=== PATIENT | female | born 1995 | race Caucasian/White ===

== ENCOUNTER 2017-04-25 10:35 | Inpatient (IN) | payer MEDICAID ==
[2017-04-25] MEDS ORDERED: Nalbuphine 20 MG/1 ML Amp IVPUSH PRN (11:28)
[2017-04-25] MEDS ORDERED: Sodium Chloride 0.9% 10 ML Syringe FLUSH PRN (11:28)
[2017-04-25] MEDS: Lactated Ringers 1,000 ML IV SCH ×4 (11:30→14:52)
[2017-04-25] MEDS ORDERED: Oxytocin/Lactated Ringers 10 UNIT/1,000 ML BAG IV SCH (11:30)
[2017-04-25] MEDS ORDERED: ePHEDrine 50 MG/ML SDV IVPUSH PRN (12:26)
[2017-04-25] MEDS ORDERED: Ondansetron 4 MG/2 ML SDV IVPUSH PRN (12:26)
[2017-04-25] MEDS ORDERED: diphenhydrAMINE 50 MG/ML SDV IVPUSH PRN (12:26)
[2017-04-25] MEDS ORDERED: fentaNYL 100 MCG/2 ML SDV ONE (12:26)
[2017-04-25] MEDS ORDERED: fentaNYL 100 MCG/2 ML SDV EPIDUR PRN (12:26)
[2017-04-25] MEDS ORDERED: Bupivacaine/fentaNYL/NS 100 ML Bag EPIDUR SCH (12:30)
--- NOTE | 2017-04-25 12:30 | PCM.PREANE ---
Preanesthetic Assessment - Procedure Proposed Procedure: ANDREW - Anesthesia/Transfusion/Family Hx Anesthesia History: No Prior Anesthesia Type of Anesthesia Reaction: Unknown Family History of Anesthesia Reaction: No Transfusion History: No Prior Transfusion(s) Intubation History: Unknown - Review of Systems General: No Symptoms Pulmonary: No Symptoms Cardiovascular: No Symptoms Gastrointestinal: No symptoms Neurological: Seizure (H/O seizure disorder- last seizure about 1 year ago, daily medication) Other: Reports: None - Physical Assessment NPO Status Date: 04/25/17 NPO Status Time: 12:00 Pulse: 68 O2 Sat by Pulse Oximetry: 98 Respiratory Rate: 16 Blood Pressure: 131/88 Temperature: 37.0 C Height: 1.65 m Weight: 85.275 kg ASA Class: 2 Mental Status: Alert & Oriented x3 Airway Class: Mallampati = 1 Dentition: Reports: Normal Dentition Thyro-Mental Finger Breadths: 3 Mouth Opening Finger Breadths: 3 ROM/Head Extension: Full Lungs: Clear to auscultation, Normal respiratory effort Cardiovascular: Regular Rate, Regular Rhythm - Lab Values: Laboratory Last Values WBC 12.98 K/mm3 (3.98-10.04) H 04/25/17 11:45 RBC 4.52 M/mm3 (3.98-5.22) 04/25/17 11:45 Hgb 13.7 gm/L (11.2-15.7) 04/25/17 11:45 Hct 39.2 % (34.1-44.9) 04/25/17 11:45 MCV 86.7 fl (79.4-94.8) 04/25/17 11:45 MCH 30.3 pg (25.6-32.2) 04/25/17 11:45 MCHC 34.9 g/dl (32.2-35.5) 04/25/17 11:45 RDW Std Deviation 41.0 fL (36.4-46.3) 04/25/17 11:45 Plt Count 251 K/mm3 (182-369) 04/25/17 11:45 MPV 10.1 fl (9.4-12.3) 04/25/17 11:45 Neut % (Auto) 82.0 % (34.0-71.1) H 04/25/17 11:45 Lymph % (Auto) 12.2 % (19.3-51.7) L 04/25/17 11:45 [place] % (Auto) 5.2 % (4.7-12.5) 04/25/17 11:45 Eos % (Auto) 0.2 (0.7-5.8) L 04/25/17 11:45 Baso % (Auto) 0.2 % (0.1-1.2) 04/25/17 11:45 Neut # (Auto) 10.64 K/mm3 (1.56-6.13) H 04/25/17 11:45 Lymph # (Auto) 1.58 K/mm3 (1.18-3.74) 04/25/17 11:45 [place] # (Auto) 0.68 K/mm3 (0.24-0.36) H 04/25/17 11:45 Eos # (Auto) 0.02 K/mm3 (0.04-0.36) L 04/25/17 11:45 Baso # (Auto) 0.03 K/mm3 (0.01-0.08) 04/25/17 11:45 - Allergies Allergies/Adverse Reactions: Allergies Allergy/AdvReac Type Severity Reaction Status Date / Time No Known Allergies Allergy Verified 04/24/17 12:31 - Blood Blood Available: No Product(s) Available: None - Anesthesia Plan Pre-Op Medication Ordered: None - Acknowledgements Anesthesia Type Planned: Epidural Pt an Appropriate Candidate for the Planned Anesthesia: Yes Alternatives and Risks of Anesthesia Discussed w Pt/Guardian: Yes Pt/Guardian Understands and Agrees with Anesthesia Plan: Yes PreAnesthesia Questionnaire - Past Health History Medical/Surgical History: Denies 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: , 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 : 2 Para: 0 Neurological History: Reports: Seizure - SUBSTANCE USE Smoking Status *Q: Never Smoker Second Hand Smoke Exposure: No Days Per Week of Alcohol Use: 0 Number of Drinks Per Day: 0 Total Drinks Per Week: 0 Recreational Drug Use History: No - HOME MEDS Home Medications: Home Meds Divalproex Sodium [Depakote] 250 mg PO DAILY 11/21/16 [History] Folic Acid 1 mg PO DAILY 11/21/16 [History] - CURRENT (IN HOUSE) MEDS Current Meds: Current Medications Lactated Ringer's (Ringers, Lactated) 1,000 mls @ 100 mls/hr IV ASDIRECTED CHRISTY Oxytocin/Lactated Ringer's (Pitocin In Lr 10 Units/1,000 Ml) 10 unit in 1,000 mls @ 500 mls/hr IV TITRATE CHRISTY PRN Reason: Protocol Nalbuphine HCl (Nubain) 10 mg IVPUSH Q2H PRN PRN Reason: Pain (moderate 4-6) Sodium Chloride (Saline Flush) 10 ml FLUSH ASDIRECTED PRN PRN Reason: Keep Vein Open
[2017-04-25] MEDS ORDERED: Lidocaine 1% 50 ML MDV ONE (19:22)
--- NOTE | 2017-04-25 19:52 | PCM.LDHP ---
L&D History of Present Illness - General Date of Service: 04/25/17 Admit Problem/Dx: Patient Status Order with Admit Dx/Problem 04/25/17 11:28 Patient Status [ADT] Routine Admission Diagnosis/Problem Admission Diagnosis/Problem care Source of Information: Patient History Limitations: Reports: No Limitations - History of Present Illness Introduction:: 22 year old here in active labor. PNC with Dr. Rodríguez complicated only by seizure disorder. 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 Neurological History: Reports: Seizure Social & Family History - Family History Family Medical History: Noncontributory - Tobacco Use Smoking Status *Q: Never Smoker Second Hand Smoke Exposure: No - Caffeine Use Caffeine Use: Reports: Soda - Alcohol Use Days Per Week of Alcohol Use: 0 Number of Drinks Per Day: 0 Total Drinks Per Week: 0 - Recreational Drug Use Recreational Drug Use: No - Living Situation & Occupation Living situation: Reports: Single, with Family Occupation: Unemployed H&P Review of Systems - Review of Systems: Review Of Systems: See Below General: Reports: No Symptoms HEENT: Reports: No Symptoms Pulmonary: Reports: No Symptoms Cardiovascular: Reports: No Symptoms Gastrointestinal: Reports: No Symptoms Genitourinary: Reports: No Symptoms Musculoskeletal: Reports: No Symptoms Skin: Reports: No Symptoms Psychiatric: Reports: No Symptoms Neurological: Reports: No Symptoms Hematologic/Lymphatic: Reports: No Symptoms Immunologic: Reports: No Symptoms L&D Exam - Exam Exam: See Below - Vital Signs Vital Signs: Last Vital Signs Temp 37.0 C 04/25/17 12:31 Pulse 68 04/25/17 12:31 Resp 16 04/25/17 12:31 BP 131/88 04/25/17 12:31 Pulse Ox 98 04/25/17 12:31 Weight: 85.275 kg - OB Specific Contraction Intensity: Mild to Moderate Movement: Active Heart Tones: Present Heart Rate (FHR) Variability: Moderate (6-25 bmp) Presentation: Vertex - Turner Score Turner Score Cervix Position: Midposition Turner Score Consistency: Medium Turner Score Effacement: 51-70% Turner Score Dilation: 3-4 cm Turner Score Infant's Station: -2 Turner Score Total: 7 - Exam General: Alert, Oriented HEENT: Conjunctiva Clear Neck: Supple, Trachea Midline Lungs: Clear to Auscultation, Normal Respiratory Effort Cardiovascular: Regular Rate, Regular Rhythm Genitourinary: Normal external exam Back Exam: Normal Inspection Extremities: Normal Inspection Skin: Warm, Dry, Intact Neurological: Cranial Nerves Intact, Reflexes Equal Bilateral Psychiatric: Alert, Normal Affect, Normal Mood - Patient Data Lab Results last 24 hrs: Laboratory Results - last 24 hr 04/25/17 Range/Units 11:45 WBC 12.98 H (3.98-10.04) K/mm3 RBC 4.52 (3.98-5.22) M/mm3 Hgb 13.7 (11.2-15.7) gm/L Hct 39.2 (34.1-44.9) % MCV 86.7 (79.4-94.8) fl MCH 30.3 (25.6-32.2) pg MCHC 34.9 (32.2-35.5) g/dl RDW Std Deviation 41.0 (36.4-46.3) fL Plt Count 251 (182-369) K/mm3 MPV 10.1 (9.4-12.3) fl Neut % (Auto) 82.0 H (34.0-71.1) % Lymph % (Auto) 12.2 L (19.3-51.7) % [place] % (Auto) 5.2 (4.7-12.5) % Eos % (Auto) 0.2 L (0.7-5.8) Baso % (Auto) 0.2 (0.1-1.2) % Neut # (Auto) 10.64 H (1.56-6.13) K/mm3 Lymph # (Auto) 1.58 (1.18-3.74) K/mm3 [place] # (Auto) 0.68 H (0.24-0.36) K/mm3 Eos # (Auto) 0.02 L (0.04-0.36) K/mm3 Baso # (Auto) 0.03 (0.01-0.08) K/mm3 Result Diagrams: 04/25/17 11:45 Problem List Initiated/Reviewed/Updated: Yes Orders Last 24hrs: Active Orders 24 hr Category Date Time Status Patient Status Manage Transfer [TRANSFER] Routine ADT 04/25/17 19:45 Active Patient Status [ADT] Routine ADT 04/25/17 11:28 Active Activity as Tolerated [RC] PFP Care 04/25/17 11:28 Active Communication Order [RC] ASDIRECTED Care 04/25/17 11:28 Active Heart Tones [RC] ASDIRECTED Care 04/25/17 11:28 Active Notify Provider [RC] PFP Care 04/25/17 11:28 Active Notify Provider [RC] PRN Care 04/25/17 11:28 Active Peripheral IV Care [RC] . DIRECTED Care 04/25/17 11:28 Active Vital Signs [RC] PER UNIT ROUTINE Care 04/25/17 11:28 Active Clear Liquid Diet [DIET] Diet 04/25/17 Breakfast Active Bupivacaine/fentaNYL/NS [fentaNYL/Bupivacaine/NS 2 MCG- Med 04/25/17 12:30 Active 0.125% 100 ML] 100 ml EPIDUR ASDIRECTED Lactated Ringers [Ringers, Lactated] 1,000 ml Med 04/25/17 11:30 Active IV ASDIRECTED Nalbuphine [Nubain] Med 04/25/17 11:28 Active 10 mg IVPUSH Q2H PRN Ondansetron [Zofran] Med 04/25/17 12:26 Active 4 mg IVPUSH ONETIME PRN Oxytocin/Lactated Ringers [Pitocin in LR 10 Units/1,000 Med 04/25/17 11:30 Active ML] 10 unit in 1,000 ml IV TITRATE Sodium Chloride 0.9% [Saline Flush] Med 04/25/17 11:28 Active 10 ml FLUSH ASDIRECTED PRN diphenhydrAMINE [Benadryl] Med 04/25/17 12:26 Active 25 mg IVPUSH Q6H PRN ePHEDrine [ePHEDrine Sulfate] Med 04/25/17 12:26 Active 5 mg IVPUSH ASDIRECTED PRN fentaNYL [Sublimaze] Med 04/25/17 12:26 Active 100 mcg EPIDUR Q3H PRN Electronic Heart Tones Ext w TOCO [WOMSER] Oth 04/25/17 11:28 Ordered Routine Electronic Heart Tones Internal [WOMSER] Per Unit Oth 04/25/17 11:28 Ordered Routine Peripheral IV Insertion Adult [OM.PC] Routine Oth 04/25/17 11:28 Ordered Resuscitation Status Routine Resus Stat 04/25/17 11:28 Ordered Medication Orders Diphenhydramine HCl (Benadryl) 25 mg IVPUSH Q6H PRN PRN Reason: pruritis Ephedrine Sulfate (Ephedrine Sulfate) 5 mg IVPUSH ASDIRECTED PRN PRN Reason: Hypotension Fentanyl (Sublimaze) 100 mcg EPIDUR Q3H PRN PRN Reason: Pain Last Admin: 04/25/17 12:56 Dose: 100 mcg Fentanyl/Bupivacaine HCl (Fentanyl/Bupivacaine/Ns 2 Mcg-0.125% 100 Ml) 100 ml EPIDUR ASDIRECTED [facility] Last Admin: 04/25/17 12:58 Dose: 100 ml Lactated Ringer's (Ringers, Lactated) 1,000 mls @ 100 mls/hr IV ASDIRECTED [facility] Last Admin: 04/25/17 14:52 Dose: 100 mls/hr Infusion: 04/25/17 14:52 Dose: 100 mls/hr Admin: 04/25/17 13:15 Dose: 100 mls/hr Infusion: 04/25/17 13:15 Dose: 100 mls/hr Admin: 04/25/17 12:30 Dose: 100 mls/hr Infusion: 04/25/17 12:30 Dose: 100 mls/hr Admin: 04/25/17 11:30 Dose: 100 mls/hr Oxytocin/Lactated Ringer's (Pitocin In Lr 10 Units/1,000 Ml) 10 unit in 1,000 mls @ 500 mls/hr IV TITRATE [facility] PRN Reason: Protocol Nalbuphine HCl (Nubain) 10 mg IVPUSH Q2H PRN PRN Reason: Pain (moderate 4-6) Ondansetron HCl (Zofran) 4 mg IVPUSH ONETIME PRN PRN Reason: Nausea/Vomiting Sodium Chloride (Saline Flush) 10 ml FLUSH ASDIRECTED PRN PRN Reason: Keep Vein Open Assessment/Plan Comment:: 22 year old here in active labor.
[2017-04-25] MEDS ORDERED: Lanolin 100% Cream 7 GM Tube TOP PRN (20:06)
[2017-04-25] MEDS ORDERED: Ibuprofen 600 MG Tab PO PRN (20:06)
[2017-04-25] MEDS ORDERED: Docusate Sodium 100 MG Cap PO PRN (20:06)
[2017-04-25] MEDS ORDERED: Witch Hazel Medicated Pads 100/Jar TOP PRN (20:06)
[2017-04-25] MEDS ORDERED: Divalproex Sodium Delayed-Release 250 MG Tab.CR PO ONE (20:08)
[2017-04-25] MEDS ORDERED: Lidocaine 1% 50 ML MDV INJECT PRN (20:54)
[2017-04-25] MEDS ORDERED: Bupivacaine 0.25% 10 ML SDV ONE (22:22)
[2017-04-26] MEDS ORDERED: Divalproex Sodium Delayed-Release 250 MG Tab.CR PO ONE (00:30)
--- NOTE | 2017-04-26 05:55 | PCM.PNPP ---
- General Info Date of Service: 04/26/17 Functional Status: Reports: pain controlled - Review of Systems General: Reports: No Symptoms HEENT: Reports: no symptoms Pulmonary: Reports: no symptoms Cardiovascular: Reports: No Symptoms Gastrointestinal: Reports: No symptoms Genitourinary: Reports: no symptoms Musculoskeletal: Reports: no symptoms Skin: Reports: no symptoms Neurological: Reports: No Symptoms Psychiatric: Reports: no symptoms - Patient Data Vital Signs - most recent: Last Vital Signs Temp 36.2 C 04/26/17 04:31 Pulse 93 04/26/17 04:31 Resp 16 04/26/17 04:31 BP 113/70 04/26/17 04:31 Pulse Ox 97 04/26/17 04:31 Weight - most recent: 85.275 kg I&O - last 24 hours: Intake & Output 04/25/17 04/25/17 04/26/17 14:59 22:59 06:59 Intake Total 360 Balance 360 Lab Results - last 24 hrs: Laboratory Results - last 24 hr 04/25/17 04/26/17 Range/Units 11:45 03:29 WBC 12.98 H 20.71 H (3.98-10.04) K/mm3 RBC 4.52 3.65 L (3.98-5.22) M/mm3 Hgb 13.7 11.2 (11.2-15.7) gm/L Hct 39.2 32.0 L (34.1-44.9) % MCV 86.7 87.7 (79.4-94.8) fl MCH 30.3 30.7 (25.6-32.2) pg MCHC 34.9 35.0 (32.2-35.5) g/dl RDW Std Deviation 41.0 40.8 (36.4-46.3) fL Plt Count 251 229 (182-369) K/mm3 MPV 10.1 9.9 (9.4-12.3) fl Neut % (Auto) 82.0 H (34.0-71.1) % Lymph % (Auto) 12.2 L (19.3-51.7) % [place] % (Auto) 5.2 (4.7-12.5) % Eos % (Auto) 0.2 L (0.7-5.8) Baso % (Auto) 0.2 (0.1-1.2) % Neut # (Auto) 10.64 H (1.56-6.13) K/mm3 Lymph # (Auto) 1.58 (1.18-3.74) K/mm3 [place] # (Auto) 0.68 H (0.24-0.36) K/mm3 Eos # (Auto) 0.02 L (0.04-0.36) K/mm3 Baso # (Auto) 0.03 (0.01-0.08) K/mm3 Med Orders - Current: Current Medications Docusate Sodium (Colace) 100 mg PO BID PRN PRN Reason: Constipation Emollient Ointment (Lansinoh Hpa) 0 gm TOP ASDIRECTED PRN PRN Reason: Sore Nipples Ibuprofen (Motrin) 600 mg PO Q6H PRN PRN Reason: Mild pain or fever Last Admin: 04/25/17 21:16 Dose: 600 mg Lidocaine HCl (Xylocaine 1%) 50 ml INJECT ONETIME PRN PRN Reason: perineal pain Last Admin: 04/25/17 19:30 Dose: 50 ml Witch Amanda (Tucks) 1 pad TOP ASDIRECTED PRN PRN Reason: Hemorrhoid pain Discontinued Medications Diphenhydramine HCl (Benadryl) 25 mg IVPUSH Q6H PRN PRN Reason: pruritis Divalproex Sodium (Divalproex Sodium) 250 mg PO ONETIME ONE Stop: 04/26/17 00:31 Last Admin: 04/26/17 00:22 Dose: 250 mg Ephedrine Sulfate (Ephedrine Sulfate) 5 mg IVPUSH ASDIRECTED PRN PRN Reason: Hypotension Fentanyl (Sublimaze) 100 mcg EPIDUR Q3H PRN PRN Reason: Pain Last Admin: 04/25/17 12:56 Dose: 100 mcg Fentanyl (Sublimaze) Confirm Administered Dose 100 mcg .ROUTE .STK-MED ONE Stop: 04/25/17 12:27 Last Admin: 04/25/17 14:22 Dose: Not Given Fentanyl/Bupivacaine HCl (Fentanyl/Bupivacaine/Ns 2 Mcg-0.125% 100 Ml) 100 ml EPIDUR ASDIRECTED CHRISTY Last Admin: 04/25/17 12:58 Dose: 100 ml Lactated Ringer's (Ringers, Lactated) 1,000 mls @ 100 mls/hr IV ASDIRECTED CHRISTY Last Admin: 04/25/17 14:52 Dose: 100 mls/hr Oxytocin/Lactated Ringer's (Pitocin In Lr 10 Units/1,000 Ml) 10 unit in 1,000 mls @ 500 mls/hr IV TITRATE CHRISTY PRN Reason: Protocol Last Admin: 04/25/17 19:25 Dose: 500 mls/hr Lidocaine HCl (Xylocaine 1%) Confirm Administered Dose 50 ml .ROUTE .STK-MED ONE Stop: 04/25/17 19:23 Last Admin: 04/25/17 20:54 Dose: Not Given Nalbuphine HCl (Nubain) 10 mg IVPUSH Q2H PRN PRN Reason: Pain (moderate 4-6) Ondansetron HCl (Zofran) 4 mg IVPUSH ONETIME PRN PRN Reason: Nausea/Vomiting Sodium Chloride (Saline Flush) 10 ml FLUSH ASDIRECTED PRN PRN Reason: Keep Vein Open - Infant Interaction Disposition, : not interacting, has not seen baby all night Infant Interaction: Not Interacting (hasn't asked about baby) Feeding: Bottle Fed - Recovery Exam Fundal Tone: Firm Fundal Level: At Umbilicus Fundal Placement: Midline Lochia Amount: Small, Moderate Lochia Color: Rubra/Red Perineum Description: Edematous Bladder Status: Voiding - Exam General: alert, oriented HEENT: Pupils equal Neck: supple Lungs: Clear to auscultation, Normal respiratory effort Cardiovascular: Regular Rate, Regular Rhythm Abdomen: bowel sounds present, soft, no tenderness, no distension Extremities: no edema Skin: warm, dry, intact Wound/Incisions: healing well Neurological: no new focal deficit Psy/Mental Status: alert, normal affect, normal mood - Problem List Review Problem List Initiated/Reviewed/Updated: Yes - My Orders Last 24 Hours: My Active Orders 04/25/17 11:28 Heart Tones [RC] ASDIRECTED Resuscitation Status Routine 04/25/17 20:06 Patient Status [ADT] Routine Activity as Tolerated [RC] Vital Signs [RC] 04,12,20 Docusate Sodium [Colace] 100 mg PO BID PRN Ibuprofen [Motrin] 600 mg PO Q6H PRN Lanolin [Lansinoh HPA] See Dose Instructions TOP ASDIRECTED PRN Jey Patel [Tucks] 1 pad TOP ASDIRECTED PRN Assess Lochia [WOMSER] Per Unit Routine Assess Uterine Involution [WOMSER] Per Unit Routine Breast Pump [WOMSER] Per Unit Routine Heat Therapy [OM.PC] PRN Medication Administration Instruction [OM.PC] Routine Perineal Care [OM.PC] Per Unit Routine Sitz Bath [OM.PC] Per Unit Routine 04/25/17 20:54 Lidocaine 1% [Xylocaine 1%] 50 ml INJECT ONETIME PRN 04/25/17 Breakfast Regular Diet [DIET] 04/26/17 05:02 Consult to [employer]i Engraver [CONS] Routine 04/26/17 20:06 Heat Therapy [OM.PC] PRN - Assessment Assessment:: Term delivery. Doing ok. Denies mood issues. - Plan Plan:: 22 year old here s/p . Doing well.
[2017-04-27 04:54] VITALS: BP 122/80
--- NOTE | 2017-04-27 06:53 | PCM.DCSUM1 ---
Discharge Summary - Discharge Data Discharge Date: 04/27/17 Discharge Disposition: Home, Self-Care 01 Condition: Good - Patient Summary/Data Consults: Consultations 04/26/17 05:02 Consult to Sea Captain [CONS] Routine - Patient Instructions Diet: Heart Healthy Diet Activity: No Strenuous Activities Driving: May Drive Today Showering/Bathing: May Shower Notify Provider of: Fever, Increased Pain, Swelling and Redness, Drainage, Nausea and/or Vomiting - Discharge Plan Home Medications: Home Meds Divalproex Sodium [Depakote] 250 mg PO DAILY 11/21/16 [History] Folic Acid 1 mg PO DAILY 11/21/16 [History] Patient Handouts: Vaginal Delivery, Care After, Pelvic Rest Referrals: Mary Rodríguez MD [Physician] - (6 weeks) - Discharge Summary/Plan Comment DC Time >30 min.: No - General Info Date of Service: 04/27/17 Functional Status: Reports: pain controlled - Review of Systems General: Reports: No Symptoms HEENT: Reports: no symptoms Pulmonary: Reports: no symptoms Cardiovascular: Reports: No Symptoms Gastrointestinal: Reports: No symptoms Genitourinary: Reports: no symptoms Musculoskeletal: Reports: no symptoms Skin: Reports: no symptoms Neurological: Reports: No Symptoms Psychiatric: Reports: no symptoms - Patient Data Vitals - Most Recent: Last Vital Signs Temp 36.4 C 04/27/17 04:47 Pulse 85 04/27/17 04:47 Resp 14 04/27/17 04:47 BP 122/80 04/27/17 04:47 Pulse Ox 97 04/27/17 04:47 Weight - Most Recent: 85.275 kg Med Orders - Current: Current Medications Docusate Sodium (Colace) 100 mg PO BID PRN PRN Reason: Constipation Emollient Ointment (Lansinoh Hpa) 0 gm TOP ASDIRECTED PRN PRN Reason: Sore Nipples Ibuprofen (Motrin) 600 mg PO Q6H PRN PRN Reason: Mild pain or fever Last Admin: 04/25/17 21:16 Dose: 600 mg Lidocaine HCl (Xylocaine 1%) 50 ml INJECT ONETIME PRN PRN Reason: perineal pain Last Admin: 04/25/17 19:30 Dose: 50 ml Witch Amanda (Tucks) 1 pad TOP ASDIRECTED PRN PRN Reason: Hemorrhoid pain Discontinued Medications Diphenhydramine HCl (Benadryl) 25 mg IVPUSH Q6H PRN PRN Reason: pruritis Divalproex Sodium (Divalproex Sodium) 250 mg PO ONETIME ONE Stop: 04/26/17 00:31 Last Admin: 04/26/17 00:22 Dose: 250 mg Ephedrine Sulfate (Ephedrine Sulfate) 5 mg IVPUSH ASDIRECTED PRN PRN Reason: Hypotension Fentanyl (Sublimaze) 100 mcg EPIDUR Q3H PRN PRN Reason: Pain Last Admin: 04/25/17 12:56 Dose: 100 mcg Fentanyl (Sublimaze) Confirm Administered Dose 100 mcg .ROUTE .[employer] ONE Stop: 04/25/17 12:27 Last Admin: 04/25/17 14:22 Dose: Not Given Fentanyl/Bupivacaine HCl (Fentanyl/Bupivacaine/Ns 2 Mcg-0.125% 100 Ml) 100 ml EPIDUR ASDIRECTED [facility] Last Admin: 04/25/17 12:58 Dose: 100 ml Lactated Ringer's (Ringers, Lactated) 1,000 mls @ 100 mls/hr IV ASDIRECTED [facility] Last Admin: 04/25/17 14:52 Dose: 100 mls/hr Oxytocin/Lactated Ringer's (Pitocin In Lr 10 Units/1,000 Ml) 10 unit in 1,000 mls @ 500 mls/hr IV TITRATE [facility] PRN Reason: Protocol Last Admin: 04/25/17 19:25 Dose: 500 mls/hr Lidocaine HCl (Xylocaine 1%) Confirm Administered Dose 50 ml .ROUTE .[employer]-MED ONE Stop: 04/25/17 19:23 Last Admin: 04/25/17 20:54 Dose: Not Given Nalbuphine HCl (Nubain) 10 mg IVPUSH Q2H PRN PRN Reason: Pain (moderate 4-6) Ondansetron HCl (Zofran) 4 mg IVPUSH ONETIME PRN PRN Reason: Nausea/Vomiting Sodium Chloride (Saline Flush) 10 ml FLUSH ASDIRECTED PRN PRN Reason: Keep Vein Open *Q Meaningful Use (DIS) - VTE *Q VTE Criteria *Q: - Stroke *Q Stroke Criteria *Q: - AMI *Q AMI Criteria *Q:
== END 2017-04-27 10:40 | disposition home or self-care (01) | DRG 775 ==
LOC: JD.OBCHECK 10:35 → JD.OB 10:36 → JD.OBCHECK 11:27 → JD.OB 11:28 → OBSVTOIN 19:24 → JD.OB 19:24
PROVIDERS: ADMIT Obstetrics & Gynecology; ATTEND Obstetrics & Gynecology
PROC: 10E0XZZ Delivery of Products of Conception, External Approach (ICD-10-PCS; principal; 2017-04-25)
PROC: 4A1HXFZ Monitoring of Products of Conception, Cardiac Rhythm, External Approach (ICD-10-PCS; 2017-04-25)
PROC: 10H07YZ Insertion of Other Device into Products of Conception, Via Natural or Artificial Opening (ICD-10-PCS; 2017-04-25)
PROC: 10907ZC Drainage of Amniotic Fluid, Therapeutic from Products of Conception, Via Natural or Artificial Opening (ICD-10-PCS; 2017-04-25)
DX: O42.92 Full-term premature rupture of membranes, unspecified as to length of time between rupture and onset of labor (principal); Z37.0 Single live birth; O75.89 Other specified complications of labor and delivery; Z3A.40 40 weeks gestation of pregnancy; G40.909 Epilepsy, unspecified, not intractable, without status epilepticus; O09.90 Supervision of high risk pregnancy, unspecified, unspecified trimester; O77.0 Labor and delivery complicated by meconium in amniotic fluid
CPT/HCPCS: 01967; 36415; 85025; 85027; A9270-GY; J2590; J3010; J7120

== ENCOUNTER 2019-08-11 07:24 | Emergency (ER) | payer SELFPAY ==
[2019-08-11 07:43] VITALS: BP 117/78; PULSE 72
[2019-08-11] MEDS ORDERED: Sodium Chloride 0.9% 10 ML Syringe FLUSH PRN (08:01)
[2019-08-11] MEDS ORDERED: Ondansetron 4 MG/2 ML SDV IVPUSH ONE (08:01)
[2019-08-11] MEDS ORDERED: Sodium Chloride 0.9% 1,000 ML IV SCH (08:15)
--- NOTE | 2019-08-11 08:19 | EDM.PDOC ---
ED HPI GENERAL MEDICAL PROBLEM - General Chief Complaint: Gastrointestinal Problem Stated Complaint: VOMITING,TROUBLE SLEEPING X 4 DAYS Time Seen by Provider: 08/11/19 07:53 Source of Information: Reports: Patient, RN Notes Reviewed - History of Present Illness INITIAL COMMENTS - FREE TEXT/NARRATIVE: 24-year-old female became ill 3 days ago with nausea vomiting. Generalized abdominal pain with this. She continues to be very nauseated this morning. When she does try to drink she gets more sick. Diarrhea. Occasional chills but no fever. Pain does not go into her back. No chest pain or difficulty breathing. No prior abdominal surgeries. - Related Data Allergies Allergy/AdvReac Type Severity Reaction Status Date / Time No Known Allergies Allergy Verified 08/11/19 07:43 Home Meds: Home Meds Divalproex Sodium [Depakote] 250 mg PO DAILY 11/21/16 [History] Folic Acid 1 mg PO DAILY 11/21/16 [History] Past Medical History - Past Health History Medical/Surgical History: Denies Medical/Surgical History [employer] History: Reports: , Spontaneous Neurological History: Reports: Seizure Social & Family History - Family History Family Medical History: Noncontributory - Tobacco Use Smoking Status *Q: Never Smoker - Caffeine Use Caffeine Use: Reports: Energy Drinks, Soda - Recreational Drug Use Recreational Drug Use: No - Living Situation & Occupation Living situation: Reports: Single, with Family Occupation: Unemployed ED ROS GENERAL - Review of Systems Review Of Systems: See Below Constitutional: Denies: Fever, Chills, Diaphoresis HEENT: Reports: No Symptoms Respiratory: Denies: Shortness of Breath Cardiovascular: Denies: Chest Pain GI/Abdominal: Reports: Abdominal Pain, Nausea, Vomiting. Denies: Diarrhea, Hematochezia, Melena : Reports: No Symptoms Musculoskeletal: Denies: Back Pain Skin: Reports: No Symptoms Neurological: Reports: No Symptoms ED EXAM, GI/ABD - Physical Exam Exam: See Below General Appearance: Alert, Mild Distress Throat/Mouth: Normal Inspection, Normal Oropharynx Head: No: Facial Swelling Neck: Supple Respiratory/Chest: No Respiratory Distress, Lungs Clear, Normal Breath Sounds Cardiovascular: Regular Rate, Rhythm GI/Abdominal Exam: Soft, Tender (Mild diffuse tenderness). No: Guarding, Rebound Back Exam: No: CVA Tenderness (L), CVA Tenderness (R) Neurological: Alert, Oriented, No Motor/Sensory Deficits Skin Exam: Dry, Normal Color Course - Vital Signs Last Recorded V/S: Last Vital Signs Temp 96.9 F 08/11/19 07:41 Pulse 72 08/11/19 07:41 Resp 18 08/11/19 07:41 BP 117/78 08/11/19 07:41 Pulse Ox 97 08/11/19 07:41 - Orders/Labs/Meds Orders: Active Orders 24 hr Category Date Time Status Peripheral IV Care [RC] . DIRECTED Care 08/11/19 08:02 Active Peripheral IV Insertion Adult [OM.PC] Stat Oth 08/11/19 08:01 Ordered Labs: Laboratory Tests 08/11/19 08/11/19 08/11/19 Range/Units 08:10 08:10 08:10 WBC 7.96 (3.98-10.04) K/mm3 RBC 4.45 (3.98-5.22) M/mm3 Hgb 13.7 (11.2-15.7) gm/dl Hct 40.2 (34.1-44.9) % MCV 90.3 (79.4-94.8) fl MCH 30.8 (25.6-32.2) pg MCHC 34.1 (32.2-35.5) g/dl RDW Std Deviation 40.3 (36.4-46.3) fL Plt Count 194 D (182-369) K/mm3 MPV 9.6 (9.4-12.3) fl Neut % (Auto) 65.6 (34.0-71.1) % Lymph % (Auto) 26.1 (19.3-51.7) % [place] % (Auto) 7.7 (4.7-12.5) % Eos % (Auto) 0.1 L (0.7-5.8) Baso % (Auto) 0.4 (0.1-1.2) % Neut # (Auto) 5.22 (1.56-6.13) K/mm3 Lymph # (Auto) 2.08 (1.18-3.74) K/mm3 [place] # (Auto) 0.61 H (0.24-0.36) K/mm3 Eos # (Auto) 0.01 L (0.04-0.36) K/mm3 Baso # (Auto) 0.03 (0.01-0.08) K/mm3 Sodium 139 (136-145) mEq/L Potassium 3.7 (3.5-5.1) mEq/L Chloride 104 (98-107) mEq/L Carbon Dioxide 27 (21-32) mEq/L Anion Gap 11.7 (5-15) BUN 17 (7-18) mg/dL Creatinine 1.1 H (0.55-1.02) mg/dL Est Cr Clr Drug Dosing 71.57 mL/min Estimated GFR (MDRD) > 60 (>60) mL/min BUN/Creatinine Ratio 15.5 (14-18) Glucose 89 (74-106) mg/dL Calcium 9.1 (8.5-10.1) mg/dL Total Bilirubin 0.5 (0.2-1.0) mg/dL AST 14 L (15-37) U/L ALT 18 (14-59) U/L Alkaline Phosphatase 61 (46-116) U/L Total Protein 6.6 (6.4-8.2) g/dl Albumin 2.9 L (3.4-5.0) g/dl Globulin 3.7 gm/dL Albumin/Globulin Ratio 0.8 L (1-2) Lipase 72 L (73-393) U/L HCG, Qual Negative (NEGATIVE) Meds: Medications Discontinued Medications Generic Name Dose Route Start Last Admin Trade Name Freq PRN Reason Stop Dose Admin Sodium Chloride 1,000 mls @ 999 mls/hr 08/11/19 08:15 08/11/19 08:32 Normal Saline IV 999 mls/hr ONETIME CHRISTY Administration Metoclopramide HCl 5 mg 08/11/19 09:10 08/11/19 09:27 Reglan IVPUSH 08/11/19 09:11 5 mg ONETIME ONE Administration Ondansetron HCl 4 mg 08/11/19 08:01 08/11/19 08:30 Zofran IVPUSH 08/11/19 08:02 4 mg ONETIME ONE Administration Sodium Chloride 10 ml 08/11/19 08:01 08/11/19 08:25 Saline Flush FLUSH 10 ml ASDIRECTED PRN Administration Keep Vein Open - Re-Assessments/Exams Free Text/Narrative Re-Assessment/Exam: 08/11/19 21:05. Patient was treated with 1 L of IV fluid, IV Zofran. Labs did come back relatively normal. Discharge instructions as documented Departure - Departure Time of Disposition: 09:56 Disposition: Home, Self-Care 01 Condition: Fair Clinical Impression: Vomiting Qualifiers: Vomiting type: unspecified Vomiting Intractability: intractable Nausea presence : with nausea Qualified Code(s): R11.2 - Nausea with vomiting, unspecified Abdominal pain Qualifiers: Abdominal location: generalized Qualified Code(s): R10.84 - Generalized abdominal pain - Discharge Information Instructions: Abdominal Pain, Adult, [id number], Vomiting, Adult Referrals: Fallon Mendoza PA-C [Primary Care Provider] - Forms: ED Department Discharge, ED Return to Work/School Form Additional Instructions: Clear liquids until this afternoon, then very careful bland diet as tolerated, milk and dairy for a couple of days. Follow up with your regular medical provider if not back to normal by Tuesday as expected, return to ED as needed if symptoms worsening in any way. - My Orders Last 24 Hours: My Active Orders 08/11/19 08:01 Peripheral IV Insertion Adult [OM.PC] Stat 08/11/19 08:02 Peripheral IV Care [RC] . DIRECTED - Assessment/Plan Last 24 Hours: My Active Orders 08/11/19 08:01 Peripheral IV Insertion Adult [OM.PC] Stat 08/11/19 08:02 Peripheral IV Care [RC] . DIRECTED
[2019-08-11] MEDS ORDERED: Metoclopramide 10 MG/2 ML SDV IVPUSH ONE (09:10)
== END 2019-08-11 10:20 | disposition home or self-care (01) ==
LOC: JD.ED 07:24
DX: R10.84 Generalized abdominal pain (principal); R11.2 Nausea with vomiting, unspecified; Z79.899 Other long term (current) drug therapy
CPT/HCPCS: 36415; 80053; 83690; 84703; 85025; 96361; 96374; 96375; 99283; J2405; J2765; J7040

== ENCOUNTER 2025-04-25 13:53 | Emergency (ER) | payer BC ==
[2025-04-25] MEDS: Ondansetron 4 MG/2 ML SDV IVPUSH ONE (14:53)
[2025-04-25] MEDS: Sodium Chloride 0.9% 1,000 ML IV ONE (14:53)
[2025-04-25 14:56] LABS: BASOPHILS PERCENT AUTO 0.5 % (0.0-1.0); EOSINOPHILS PERCENT AUTO 0.4 % (0.0-6.0); HEMATOCRIT 36.1 % (37.0-47.0); HEMOGLOBIN 12.1 gm/dl (12.0-16.0); IMMATURE GRAN ABSOLUTE AUTO 0.01 K/mm3 (0.00-0.05); IMMATURE GRAN PERCENT AUTO 0.2 % (0.0-0.4); LYMPHOCYTES PERCENT AUTO 54.1 % (24.0-44.0); MEAN CORPUSCULAR HEMOGLOBIN 30.6 pg (28.0-32.0); MEAN CORPUSCULAR HGB CONC 33.5 g/dl (32.0-36.0); MEAN CORPUSCULAR VOLUME 91.4 fl (83.0-99.0); MEAN PLATELET VOLUME 9.3 fl (9.4-12.3); MONOCYTES ABSOLUTE AUTO 0.3 K/mm3 (0.0-0.8); MONOCYTES PERCENT AUTO 5.5 % (0.0-8.0); NEUTROPHILS ABSOLUTE AUTO 2.2 K/mm3 (1.8-7.7); NEUTROPHILS PERCENT AUTO 39.3 % (41.0-71.0); PLATELET COUNT,PLT 220 K/mm3 (150-400); RED BLOOD CELL COUNT 3.95 M/mm3 (4.10-5.30)
[2025-04-25 15:19] LABS: INR 1.02; PROTHROMBIN TIME 10.8 SECONDS (9.7-12.0)
[2025-04-25 15:21] LABS: A/G RATIO 1.2 (1-2); ACETAMINOPHEN 1 ug/mL (10-30); ALANINE AMINOTRANSFERASE,ALT 21 U/L (14-59); ALBUMIN 3.3 g/dl (3.4-5.0); ALKALINE PHOSPHATASE 98 U/L (46-116); ANION GAP 11.5 (5-15); ASPARTATE AMNIOTRANSFERASE,AST 23 U/L (15-37); BILIRUBIN TOTAL 0.4 mg/dL (0.2-1.0); BLOOD UREA NITROGEN,BUN 6 mg/dL (7-18); BUN/CREATININE RATIO 6.7 (14-18); CALCIUM 8.4 mg/dL (8.5-10.1); CARBON DIOXIDE,CO2 28 mEq/L (21-32); CHLORIDE,CL 107 mEq/L (98-107); CREATINE KINASE,CK 152 U/L (26-192); CREATININE 0.9 mg/dL (0.55-1.02); ESTIMATED GFR 89 mL/min (>60); GLUCOSE RANDOM 90 mg/dL (70-99); LIPASE 18 U/L (16-77); MAGNESIUM 1.5 mg/dL (1.8-2.4); POTASSIUM,K 3.5 mEq/L (3.5-5.1); PROTEIN TOTAL,TP 6.1 g/dl (6.4-8.2); SODIUM,NA 143 mEq/L (136-145)
[2025-04-25 16:18] LABS: BARBITURATE SCREEN,URINE PRESUMPTIVE POSITIVE (CUTOFF=200); BENZODIAZEPINES SCREEN,URINE NEGATIVE (CUTOFF=150); BUPRENORPHINE SCREEN,URINE NEGATIVE (CUTOFF=10); METHADONE SCREEN, URINE NEGATIVE (CUTOFF=200); METHAMPHETAMINES SCREEN, URINE NEGATIVE (CUTOFF=500); OXYCODONE SCREEN,URINE NEGATIVE (CUT0FF=100); THC SCREEN,URINE 20 NG/ML NEGATIVE (CUTOFF=50)
[2025-04-25 16:26] LABS: AMPHETAMINES SCREEN, URINE NEGATIVE (CUTOFF=500)
[2025-04-25 18:22] VITALS: BP 112/75; PULSE 75
== END 2025-04-25 16:37 | disposition home or self-care (01) ==
LOC: JD.ED 13:53
DX: G40.909 Epilepsy, unspecified, not intractable, without status epilepticus (principal); Z79.899 Other long term (current) drug therapy
CPT/HCPCS: 36415; 80053; 80143; 80164; 80179; 80306; 80307; 81025; 82550; 83690; 83735; 85025; 85610; 93005; 96361; 96374; 99284; C1758; J2405; J7030